=== PATIENT | female | born 2000 | race Caucasian/White ===

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

== ENCOUNTER 2019-01-16 21:09 | Emergency (ER) | payer BC, OTHER ==
[~2019-01-16] VITALS: Ht 160 cm; Wt 65.9 kg
[2019-01-16 21:17] VITALS: TEMP 97.5
[2019-01-16] MEDS ORDERED: PREDNISONE20 MG PO (22:38)
[2019-01-16 22:56] VITALS: BP 122/74; PULSE 78
== END 2019-01-16 22:53 | disposition home or self-care (01) ==
LOC: COL.ER 21:09
DX: T78.1XXA Other adverse food reactions, not elsewhere classified, initial encounter (principal); R21 Rash and other nonspecific skin eruption
CPT/HCPCS: J1200; J7030; J7512

== ENCOUNTER → 2019-04-20 | Outpatient (CLI) | payer BC, OTHER ==
[~2019-04-20] MED LIST changes: +PREDNISONE20 MG PO
== END ==
LOC: COL.RAD 12:45
DX: M25.571 Pain in right ankle and joints of right foot (principal)